=== PATIENT | male | born 1975 | race Caucasian/White ===

== ENCOUNTER 2018-03-14 22:49 | Emergency (ER) | payer MEDICARE, MEDICAID ==
--- NOTE | 2018-03-14 22:50 | ED Physician Documentation ---
PD MINESH KAPLAN - Stated complaint Stated Complaint: SORE THROAT - History obtained from History obtained from: Patient - History of Present Illness Timing - onset: How many weeks ago (2) Timing - duration: Weeks (2) Timing - details: Gradual onset, Still present, Waxing and waning Location: Sinuses, Throat Worsens: Swalllowing Associated symptoms: Congestion, Swollen nodes, Other (he is apparently homeless and says he has not showered for 3 weeks. However he says he has a place with his in [place] (no one answers at the phone number listed on his info page). He is not able to tell me how he arrived/got to the ER this evening. He repeats (interruptingly) that he needs medical care, and when I asked what his symptoms are that are bothering him, he can just yell "I don't know, I'm not the doctor". He can only voice having a sore throat and "not feeling well".). No: Fever, Unable to swallow, Facial swelling Similar symptoms before: Has not had sx before Recently seen: Not recently seen Review of Systems Constitutional: reports: Myalgias, Fatigue. denies: Fever Nose: reports: Congestion Throat: reports: Sore throat Cardiac: denies: Chest pain / pressure Respiratory: reports: Cough (mild). denies: Dyspnea GI: denies: Abdominal Pain, Nausea, Vomiting, Diarrhea Skin: denies: Rash Neurologic: denies: Headache PD PAST MEDICAL HISTORY - Past Medical History Cardiovascular: None Respiratory: None Neuro: None Endocrine/Autoimmune: None - Allergies Allergies/Adverse Reactions: Allergies Allergy/AdvReac Type Severity Reaction Status Date / Time No Known Drug Allergies Allergy Verified 03/14/18 22:54 - Living Situation Living Situation: reports: Other (he says at one point that his is coming to pick him up, but then says he has not had a shower for 3 weeks nor warm bed. ) - Social History Does the pt smoke?: Yes Does the pt have substance abuse?: No - Family History Family history: reports: Non contributory PD ED PE NORMAL - Vitals Vital signs reviewed: Yes - General General: No acute distress, Well developed/nourished, Other (somewhat anxious, and repeats that he needs to check into the ER, as he is lying in a cart in a room. He is able to tell me name, and that he is on [facility], but otherwise is reluctant to talk and just wants to sleep and be left alone. Generally unkempt and malodorous c/w claim of not bathed in awhile. 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 No: Alert and oriented X 3 (person and place, but not time) Eye Opening: Spontaneous Motor: Obeys Commands Verbal: Confused GCS Score: 14 Results - Vitals Vitals: Vital Signs - 24 hr 03/14/18 03/14/18 03/14/18 22:51 23:20 23:38 Temperature 36.2 C L Heart Rate 73 Respiratory 16 17 17 Rate Blood Pressure 146/78 H O2 Saturation 99 03/14/18 03/14/18 03/15/18 23:43 23:58 00:23 Temperature Heart Rate Respiratory 17 17 17 Rate Blood Pressure O2 Saturation 03/15/18 03/15/18 03/15/18 00:39 01:07 01:50 Temperature Heart Rate Respiratory 17 17 17 Rate Blood Pressure O2 Saturation 03/15/18 03/15/18 03/15/18 03:17 04:48 05:03 Temperature Heart Rate 77 Respiratory 14 14 20 Rate Blood Pressure 149/90 H O2 Saturation 100 Oxygen O2 Source Room air - Labs Labs: Laboratory Tests 03/14/18 03/14/18 03/14/18 23:00 23:37 23:37 WBC 8.1 RBC 4.98 Hgb 15.0 Hct 45.1 MCV 90.5 MCH 30.2 MCHC 33.4 RDW 13.3 Plt Count 220 MPV 8.4 Neut # (Auto) 4.9 Lymph # (Auto) 2.4 [place] # (Auto) 0.6 Eos # (Auto) 0.1 Baso # (Auto) 0.1 Absolute Nucleated RBC 0.01 Nucleated RBC % 0.1 Sodium 140 Potassium 3.6 Chloride 102 Carbon Dioxide 29 Anion Gap 9.0 BUN 10 Creatinine 0.8 Estimated GFR (MDRD) 105 Glucose 188 H Lactic Acid Calcium 8.7 Magnesium 2.0 Total Bilirubin < 0.2 L AST 33 ALT 33 Alkaline Phosphatase 89 Total Protein 7.5 Albumin 4.0 Globulin 3.5 Albumin/Globulin Ratio 1.1 Lipase 38 Salicylates Urine Opiates Screen Ur Oxycodone Screen Urine Methadone Screen Ur Propoxyphene Screen Acetaminophen Ur Barbiturates Screen Ur Tricyclics Screen Ur Phencyclidine Scrn Ur Amphetamine Screen U Methamphetamines Scrn U Benzodiazepines Scrn Urine Cocaine Screen U Cannabinoids Screen Ethyl Alcohol < 5.0 Group A Strep Rapid Negative 03/14/18 03/14/18 03/15/18 23:37 23:37 06:29 WBC RBC Hgb Hct MCV MCH MCHC RDW Plt Count MPV Neut # (Auto) Lymph # (Auto) [place] # (Auto) Eos # (Auto) Baso # (Auto) Absolute Nucleated RBC Nucleated RBC % Sodium Potassium Chloride Carbon Dioxide Anion Gap BUN Creatinine Estimated GFR (MDRD) Glucose Lactic Acid 2.1 Calcium Magnesium Total Bilirubin AST ALT Alkaline Phosphatase Total Protein Albumin Globulin Albumin/Globulin Ratio Lipase Salicylates < 6.0 Urine Opiates Screen NEGATIVE Ur Oxycodone Screen NEGATIVE Urine Methadone Screen NEGATIVE Ur Propoxyphene Screen NEGATIVE Acetaminophen < 10 L Ur Barbiturates Screen NEGATIVE Ur Tricyclics Screen NEGATIVE Ur Phencyclidine Scrn NEGATIVE Ur Amphetamine Screen NEGATIVE U Methamphetamines Scrn NEGATIVE U Benzodiazepines Scrn NEGATIVE Urine Cocaine Screen NEGATIVE U Cannabinoids Screen NEGATIVE Ethyl Alcohol Group A Strep Rapid PD MEDICAL DECISION MAKING - ED course Complexity details: re-evaluated patient (On further questioning he actually says he has a house in [place] but he does not know the address. He states he is and his lives there. We tried calling that number and there was no answer. He deflects answering questions about past medical history. He is somewhat belligerent verbally when I tried to pointedly questioned about any past history of psychiatric problems. I do not get a sense that he is actually functional in the ability to leave the hospital and care for himself. He is clearly able to make it to the bathroom and go to the toilet and wiping himself and feed himself but his thought process is still rather scattered. He is also acting hypersexual with exposing himself to the nurses and making suggestive comments about them. He is having disorganized and dysfunctional thought processing, with anxiety, hyperactivity, agitation and hypersexuality. I get the feeling he is having a schizoaffective process and it does not seem metabolic or infectious.), considered differential (Will get basic labs to eval for metabolic or infectious concerns. Seems mainly that he is in need of some food and a place to sleep, but don't want to miss worse process, sharifa in lieu of his somewhat confusion. Denies headache. No signs of injury. We don't have prior ER visits/records for the patient. ), d/w patient, d/w medical consultant (tried to get DCR dispatched but [facility] would not without a UTox. This was about 4 am. Patient subsequently did give urine sample, which was negative. Now [facility] said it was close enough to morning to allow Social Work to see patient, according to the nurse. Will have him here until SW can see him and likely then have DCR. He is pacing in room and still having poor ability to convey what is bothering him, his plan for the day, where he lives, etc. Will pass on care to daytime EDMD. ) Departure - Departure Clinical Impression: Sore throat, Disorganized thought process Psychosis Qualifiers: Psychosis type: unspecified psychosis type Qualified Code(s): F29 - Unspecified psychosis not due to a substance or known physiological condition Condition: Stable Record reviewed to determine appropriate education?: Yes
[2018-03-14] MEDS ORDERED: DEXAMETHASONE 10 MG/ML VIAL PO STA (23:08)
[2018-03-14] MEDS ORDERED: ACETAMINOPHEN 325 MG TABLET PO STA (23:08)
[2018-03-14] MEDS ORDERED: CHERRY SYRUP 10 ML UDC PO ONE (23:19)
[2018-03-14 23:45] LABS: BASOPHILS # (AUTO) 0.1 10^3/uL (0.0-0.1); BASOPHILS % (AUTO) 0.9 %; EOSINOPHILS # (AUTO) 0.1 10^3/uL (0.0-0.7); EOSINOPHILS % (AUTO) 1.6 %; LYMPHOCYTES # (AUTO) 2.4 10^3/uL (1.5-3.5); MEAN CORPUSCULAR HEMOGLOBIN 30.2 pg (27.0-31.0); MEAN CORPUSCULAR HGB CONC 33.4 g/dL (32.0-36.0); MEAN CORPUSCULAR VOLUME 90.5 fL (80.0-94.0); MEAN PLATELET VOLUME 8.4 fL (7.4-11.4); MONOCYTES # (AUTO) 0.6 10^3/uL (0.0-1.0); MONOCYTES % (AUTO) 7.9 %; NEUTROPHILS # (AUTO) 4.9 10^3/uL (1.5-6.6); NEUTROPHILS % (AUTO) 60.6 %; PLT - PLATELET COUNT 220 10^3/uL (130-450); RED BLOOD COUNT 4.98 10^6/uL (4.70-6.10); RED CELL DISTRIBUTION WIDTH 13.3 % (12.0-15.0); WHITE BLOOD COUNT 8.1 x10^3/uL (4.8-10.8)
[2018-03-14 23:57] LABS: ALBUMIN/GLOBULIN RATIO 1.1 (1.0-2.2); ALKALINE PHOSPHATASE 89 IU/L (42-121); ALT ALANINE AMINOTRANSFERASE 33 IU/L (10-60); AST ASPARTATE AMINOTRANSFERASE 33 IU/L (10-42); BILIRUBIN,TOTAL < 0.2 mg/dL (0.2-1.0); BUN - BLOOD UREA NITROGEN 10 mg/dL (6-20); CALCIUM 8.7 mg/dL (8.5-10.3); CARBON DIOXIDE - CO2 29 mmol/L (21-32); CHLORIDE 102 mmol/L (101-111); CREATININE 0.8 mg/dL (0.6-1.2); GFR - MDRD 105 (>89); GLUCOSE 188 mg/dL (70-100); LIPASE 38 U/L (22-51); SODIUM 140 mmol/L (135-145); TOTAL PROTEIN 7.5 g/dL (6.7-8.2)
[2018-03-15 06:14] LABS: ACETAMINOPHEN < 10 ug/mL (10-30); SALICYLATE < 6.0 mg/dL
[2018-03-15 06:30] LABS: MUDS CUTOFF CONCENTRATIONS CUTOFF CONC BELOW:
[2018-03-15 06:42] LABS: AMPHETAMINE SCREEN,URINE NEGATIVE (NEGATIVE); BENZODIAZEPINES SCREEN, URINE NEGATIVE (NEGATIVE); COCAINE SCREEN URINE NEGATIVE (NEGATIVE); METHADONE SCREEN, URINE NEGATIVE (NEGATIVE); METHAMPHETAMINES SCREEN, URINE NEGATIVE (NEGATIVE); OPIATE SCREEN, URINE NEGATIVE (NEGATIVE); OXYCODONE SCREEN, URINE NEGATIVE (NEGATIVE); PROPOXYPHENE SCREEN, URINE NEGATIVE (NEGATIVE); TRICYCLIC ANTIDEPRESSANT,URINE NEGATIVE (NEGATIVE)
--- NOTE | 2018-03-15 07:30 | ED Physician Documentation ---
History of Present Illness - Stated complaint Stated Complaint: SORE THROAT - Chief complaint Chief Complaint: Heent - Additonal information Additional information: hx from pt 42 male presented to ED with vague complaints - sore throa wants a shower feels malnourished was verbally belligerent, evasive, defecting with disorganized thoughts his trep was neg his thoughts were disorganized enough that there was a concern for mental health issues - perhaps hypomania with disability pt was medically cleared by welder 2nd shift DCR was called but deferred to SW I assumed care 7 AM awaiting eval i went to see pt he was at [facility] says he wants breakfast complains or sore throat denies fever cough CP AP NVD when i asked where he was living he bacame agiatted and started pacing the room repeatedly stating "I plead the 5th" doesnt appear to be hallucinating sot stating suicidal or homicidal - but evasive and diff to get answers from Review of Systems Constitutional: denies: Fever Throat: reports: Sore throat Respiratory: denies: Cough GI: denies: Abdominal Pain, Nausea, Vomiting Endocrine: denies: Easy bruising / bleeding Immunocompromised: denies: Immunocompromised PD PAST MEDICAL HISTORY - Past Medical History Past Medical History: No Cardiovascular: None Respiratory: None Neuro: None Endocrine/Autoimmune: None HEENT: None Musculoskeletal: None Derm: None - Allergies Allergies/Adverse Reactions: Allergies Allergy/AdvReac Type Severity Reaction Status Date / Time No Known Drug Allergies Allergy Verified 03/14/18 22:54 - Social History Does the pt smoke?: Yes Smoking Status: Current every day smoker Does the pt have substance abuse?: No - Immunizations Immunizations are current?: No - POLST Patient has POLST: No PD ED PE NORMAL - Vitals Vital signs reviewed: Yes - General General: Alert and oriented X 3 - HEENT HEENT: PERRL, Moist mucous membranes. No: Pharynx benign (mild erythema) - Neck Neck: Supple, no meningeal sign - Cardiac Cardiac: RRR - Respiratory Respiratory: No respiratory distress, Clear bilaterally - Abdomen Abdomen: Non tender - Derm Derm: Normal color - Neuro Neuro: Alert and oriented X 3, No motor deficit Eye Opening: Spontaneous Motor: Obeys Commands Verbal: Oriented GCS Score: 15 - Psych Psych: Other (initially calm and cooperative, then abruptly agitated pacing evasive and stating "I plead the 5th") Results - Vitals Vitals: Vital Signs - 24 hr 03/14/18 03/14/18 03/14/18 22:51 23:20 23:38 Temperature 36.2 C L Heart Rate 73 Respiratory 16 17 17 Rate Blood Pressure 146/78 H O2 Saturation 99 03/14/18 03/14/18 03/15/18 23:43 23:58 00:23 Temperature Heart Rate Respiratory 17 17 17 Rate Blood Pressure O2 Saturation 03/15/18 03/15/18 03/15/18 00:39 01:07 01:50 Temperature Heart Rate Respiratory 17 17 17 Rate Blood Pressure O2 Saturation 03/15/18 03/15/18 03/15/18 03:17 04:48 05:03 Temperature Heart Rate 77 Respiratory 14 14 20 Rate Blood Pressure 149/90 H O2 Saturation 100 03/15/18 15:09 Temperature Heart Rate 75 Respiratory 16 Rate Blood Pressure 139/96 H O2 Saturation 100 Oxygen O2 Source Room air - Labs Labs: Laboratory Tests 03/14/18 03/14/18 03/14/18 23:00 23:32 23:37 WBC 8.1 RBC 4.98 Hgb 15.0 Hct 45.1 MCV 90.5 MCH 30.2 MCHC 33.4 RDW 13.3 Plt Count 220 MPV 8.4 Neut # (Auto) 4.9 Lymph # (Auto) 2.4 [place] # (Auto) 0.6 Eos # (Auto) 0.1 Baso # (Auto) 0.1 Absolute Nucleated RBC 0.01 Nucleated RBC % 0.1 Sodium Potassium Chloride Carbon Dioxide Anion Gap BUN Creatinine Estimated GFR (MDRD) Glucose Glycated Hemoglobin 5.9 Estim Average Glucose 123 H Lactic Acid Calcium Magnesium Total Bilirubin AST ALT Alkaline Phosphatase Total Protein Albumin Globulin Albumin/Globulin Ratio Lipase Urine Color Urine Clarity Urine pH Ur Specific [place] Urine Protein Urine Glucose (UA) Urine Ketones Urine Occult Blood Urine Nitrite Urine Bilirubin Urine Urobilinogen Ur Leukocyte Esterase Ur Microscopic Review Urine Culture Comments Salicylates Urine Opiates Screen Ur Oxycodone Screen Urine Methadone Screen Ur Propoxyphene Screen Acetaminophen Ur Barbiturates Screen Ur Tricyclics Screen Ur Phencyclidine Scrn Ur Amphetamine Screen U Methamphetamines Scrn U Benzodiazepines Scrn Urine Cocaine Screen U Cannabinoids Screen Ethyl Alcohol Group A Strep Rapid Negative 03/14/18 03/14/1803/14/18 23:37 23:37 23:37 WBC RBC Hgb Hct MCV MCH MCHC RDW Plt Count MPV Neut # (Auto) Lymph # (Auto) [place] # (Auto) Eos # (Auto) Baso # (Auto) Absolute Nucleated RBC Nucleated RBC % Sodium 140 Potassium 3.6 Chloride 102 Carbon Dioxide 29 Anion Gap 9.0 BUN 10 Creatinine 0.8 Estimated GFR (MDRD) 105 Glucose 188 H Glycated Hemoglobin Estim Average Glucose Lactic Acid 2.1 Calcium 8.7 Magnesium 2.0 Total Bilirubin < 0.2 L AST 33 ALT 33 Alkaline Phosphatase 89 Total Protein 7.5 Albumin 4.0 Globulin 3.5 Albumin/Globulin Ratio 1.1 Lipase 38 Urine Color Urine Clarity Urine pH Ur Specific [place] Urine Protein Urine Glucose (UA) Urine Ketones Urine Occult Blood Urine Nitrite Urine Bilirubin Urine Urobilinogen Ur Leukocyte Esterase Ur Microscopic Review Urine Culture Comments Salicylates < 6.0 Urine Opiates Screen Ur Oxycodone Screen Urine Methadone Screen Ur Propoxyphene Screen Acetaminophen < 10 L Ur Barbiturates Screen Ur Tricyclics Screen Ur Phencyclidine Scrn Ur Amphetamine Screen U Methamphetamines Scrn U Benzodiazepines Scrn Urine Cocaine Screen U Cannabinoids Screen Ethyl Alcohol < 5.0 Group A Strep Rapid 03/15/18 03/15/18 06:29 06:30 WBC RBC Hgb Hct MCV MCH MCHC RDW Plt Count MPV Neut # (Auto) Lymph # (Auto) [place] # (Auto) Eos # (Auto) Baso # (Auto) Absolute Nucleated RBC Nucleated RBC % Sodium Potassium Chloride Carbon Dioxide Anion Gap BUN Creatinine Estimated GFR (MDRD) Glucose Glycated Hemoglobin Estim Average Glucose Lactic Acid Calcium Magnesium Total Bilirubin AST ALT Alkaline Phosphatase Total Protein Albumin Globulin Albumin/Globulin Ratio Lipase Urine Color YELLOW Urine Clarity CLEAR Urine pH 7.5 Ur Specific [place] 1.015 Urine Protein NEGATIVE Urine Glucose (UA) NEGATIVE Urine Ketones NEGATIVE Urine Occult Blood NEGATIVE Urine Nitrite NEGATIVE Urine Bilirubin NEGATIVE Urine Urobilinogen 2 H Ur Leukocyte Esterase NEGATIVE Ur Microscopic Review NOT INDICATED Urine Culture Comments NOT INDICATED Salicylates Urine Opiates Screen NEGATIVE Ur Oxycodone Screen NEGATIVE Urine Methadone Screen NEGATIVE Ur Propoxyphene Screen NEGATIVE Acetaminophen Ur Barbiturates Screen NEGATIVE Ur Tricyclics Screen NEGATIVE Ur Phencyclidine Scrn NEGATIVE Ur Amphetamine Screen NEGATIVE U Methamphetamines Scrn NEGATIVE U Benzodiazepines Scrn NEGATIVE Urine Cocaine Screen NEGATIVE U Cannabinoids Screen NEGATIVE Ethyl Alcohol Group A Strep Rapid PD MEDICAL DECISION MAKING - ED course ED course: seen by welder 2nd shift medically clear DCR was contacted to come eval pt but deferred to SW SW saw pt approx 0830 and deferred back to DCR DCR saw pt and placed him at [facility] and was detained pt agreed to take zyprexa and was cooperative and was transported without [employer] Departure - Departure Disposition: 65 Psych Hosp/Unit DC/Xfer Clinical Impression: Sore throat, Disorganized thought process, Gravely disabled Psychosis Qualifiers: Psychosis type: unspecified psychosis type Qualified Code(s): F29 - Unspecified psychosis not due to a substance or known physiological condition Condition: Stable Discharge Date/Time: 03/15/18 15:25
[2018-03-15 11:49] LABS: BILIRUBIN,URINE NEGATIVE (NEGATIVE); GLUCOSE, URINE (UA) NEGATIVE (NEGATIVE); KETONES,URINE (UA) NEGATIVE (NEGATIVE); LEUKOCYTE ESTERASE, URINE NEGATIVE (NEGATIVE); NITRITE,URINE NEGATIVE (NEGATIVE); OCCULT BLOOD,URINE NEGATIVE (NEGATIVE); PH,URINE 7.5 PH (5.0-7.5); PROTEIN,URINE NEGATIVE (NEGATIVE); UROBILINOGEN,URINE 2 E.U./dL (NORMAL)
[2018-03-15 11:52] LABS: CLARITY,URINE CLEAR (CLEAR)
[2018-03-15] MEDS ORDERED: OLANZapine ODT 5 MG TABLET TL STA (13:14)
[2018-03-15 13:50] LABS: HB2 TOTAL 15.8 g/dL; HEMOGLOBIN A1C 0.65 g/dL; HEMOGLOBIN A1C % 5.9 % (4.6-6.2)
[2018-03-15 15:10] VITALS: BP 139/96
== END 2018-03-15 15:25 ==
LOC: ED 22:49
DX: J02.9 Acute pharyngitis, unspecified (principal); F29 Unspecified psychosis not due to a substance or known physiological condition; F79 Unspecified intellectual disabilities; F17.200 Nicotine dependence, unspecified, uncomplicated; Z59.0 Homelessness
CPT/HCPCS: 36415; 80053; 81003; 83036; 83605; 83690; 83735; 85025; 87070; 87430; 99284; A9270; 80306; 80307; 80320; 80329; 81001; 87086; 99285